=== PATIENT | female | born 1975 | race Caucasian/White ===

== ENCOUNTER 2016-08-20 10:34 | Inpatient (IN) | payer OTHER ==
[~2016-08-20] VITALS: Ht 162.6 cm; Wt 57.9 kg
[2016-08-20] MEDS ORDERED: IRON65TA PO (10:59)
[2016-08-20 11:47] LABS: BASO % 0.4 % (0.0-1.0); EOS # 0.2 K/mm3 (0.0-0.50); EOS % 2.4 % (0.0-3.0); LARGE UNSTAINED CELL # 0.1 K/mm3 (0.0-0.4); LARGE UNSTAINED CELL % 1.6 % (0.0-4.0); LYMPH # 1.4 K/mm3 (1.5-4.5); LYMPH % 20.1 % (24.0-44.0); MEAN CORPUSCULAR HEMOGLOBIN 32.2 pg (27.0-33.0); MEAN CORPUSCULAR HGB CONC 34.6 g/dl (32.0-36.5); MEAN CORPUSCULAR VOLUME 93.1 fl (80.0-96.0); MONO # 0.3 K/mm3 (0.0-0.8); MONO % 4.1 % (0.0-5.0); NEUTROPHILS # 4.8 K/mm3 (1.8-7.7); NEUTROPHILS % 71.4 % (36.0-66.0); PLATELET COUNT, AUTOMATED 180 k/mm3 (150-450); RED CELL DISTRIBUTION WIDTH 12.4 % (11.5-14.5); WHITE BLOOD COUNT 6.8 K/mm3 (4.0-10.0)
[2016-08-20 12:15] LABS: ALBUMIN 3.7 GM/DL (3.2-5.2); ALBUMIN/GLOBULIN RATIO 1.16 (1.00-1.93); ALKALINE PHOSPHATASE 37 U/L (45-117); ALT/SGPT 15 U/L (12-78); ANION GAP 7 MEQ/L (8-16); AST/SGOT 16 U/L (15-37); BILIRUBIN,DIRECT < 0.1 MG/DL (0.0-0.2); BILIRUBIN,TOTAL 0.4 MG/DL (0.2-1.0); BLOOD UREA NITROGEN 10 MG/DL (7-18); CALCIUM LEVEL 8.7 MG/DL (8.5-10.1); CARBON DIOXIDE LEVEL 25 MEQ/L (21-32); CHLORIDE LEVEL 106 MEQ/L (98-107); CREATININE FOR GFR 0.87 MG/DL (0.55-1.02); GLOMERULAR FILTRATION RATE > 60.0 (>58); GLUCOSE, FASTING 88 MG/DL (70-105); POTASSIUM SERUM 3.7 MEQ/L (3.5-5.1); SODIUM LEVEL 138 MEQ/L (136-145); TOTAL PROTEIN 6.9 GM/DL (6.4-8.2)
[2016-08-20 12:50] LABS: CONTROL LINE HCG INT CTR LINE PRESENT
--- NOTE | 2016-08-20 13:29 | REP ---
CHEST, TWO VIEWS: No comparison. There is no evidence of acute infiltrate. No pleural effusion is seen. The heart is normal in size. The mediastinal silhouette is unremarkable. The visualized osseous structures are intact. IMPRESSION: No acute pulmonary disease. Signed by Wilian Mcintosh MD 08/20/2016 05:43 P
--- NOTE | 2016-08-20 13:49 | REP ---
CT Head without contrast HISTORY: Headache COMPARISON: None There is no intraparenchymal hemorrhage, acute infarct, mass or midline shift. The ventricular system is normal in appearance. There is no extra cerebral collection. There is no fracture. The visualized sinuses are clear. IMPRESSION: There is no intracranial lesion. Signed by Rashel Cruz MD 08/20/2016 01:41 P
[2016-08-20] MEDS ORDERED: IBUP200T45 PO (14:09)
--- NOTE | 2016-08-20 16:22 | REP ---
MRI BRAIN WITHOUT CONTRAST: HISTORY: Left sided weakness. COMPARISON: CT 08/20/2016. A single punctate focus of increased signal intensity on T2-weighted images is present in the subcortical white matter of the right temporal lobe. There is no intraparenchymal hemorrhage, infarct, mass or midline shift. The ventricular system is normal in appearance. There is no extracerebral collection. The sinuses are clear. IMPRESSION: There is a single punctate focus of increased signal intensity in the subcortical white matter of the right temporal lobe. This is a nonspecific finding. Signed by Rashel Cruz MD 08/20/2016 04:23 P
--- NOTE | 2016-08-20 16:24 | REP ---
MRA BRAIN WITHOUT CONTRAST: HISTORY: Left-sided weakness. 3D [id number] MR angiography was performed at the level of the [place]. There is no aneurysm, arteriovenous malformation or atherosclerotic lesion. Major intracranial vessels are patent. The left vertebral artery is dominant. IMPRESSION: Normal MRA brain. Signed by Rashel Cruz MD 08/20/2016 04:27 P
[2016-08-20] MEDS ORDERED: ASPIRIN 81 MG CHEW TABLET PO ONE (16:45)
[2016-08-20] MEDS ORDERED: ACETAMINOPHEN 325 MG TAB PO PRN (20:00)
--- NOTE | 2016-08-20 22:21 | HPEPDOC ---
General Date of Admission August 20, 2016 at 19:06 Attending Physician: KASSI HNUT MD Chief Complaint The patient is a 41-year-old female admitted with a reason for visit of Complicated Migraine;Tia. Source: Patient, Family, RN notes reviewed, Old records Exam Limitations: Clinical conditions Timing/Duration: This morning History of Present Illness Ms. Moreno is a 41 year old female who presents with weakness and hallucinations. She is accompanied by her and a friend. They provide some of the history. Past medical history is significant for a history of migraine with aura, history of enteritis, and questionable iron deficiency. Patient reports that hallucinatory event occurred after her father presented a topic on the War of 1811. She states that she started visualizing soldiers from the War of 1811 and left as if she was in a dream-like state. She also experienced intermittent episodes of weakness in her left lower extremity. During evaluation she appears uncertain of certain events and appears somewhat confused while providing the history. She reports a history of migraine with aura which was exacerbated by oral contraception. She says that her OB recommended that she discontinue her oral contraception and take ibuprofen to combat her headaches during her menstrual cycles. She states that she takes ibuprofen just before the start of her menstrual cycle and does not experience her headaches anymore. Patient reports that she also notes an increase in her migraine headache in association with her menstrual cycle and drinking red wine. She admits to drinking red wine last evening, but is not currently on her menstrual cycle. hCG was negative. Toxicology screen is pending. Patient continues to have delayed motor response in left lower extremity. Patient admits to having a similar episode in 2016. Patient also reports an expanding circular rash on her right inner thigh and outer leg proximal to the lateral aspect of the tibia. She reports that the first rash appeared in April 2016 on her inner thigh. It started out circular and that she describes as "a burst blood vessel." She reports internet searching her symptom and empirically starting herself on iron. She reports that the circular rash then developed into a more "targetoid" lesion which she reports will sometimes have a "purpl- lo" discoloration in the center. Denies pruritus and bleeding. Reports a second circular rash on her right lower lateral leg proximal to the lateral tibia. It appear scaly without pruritus and the telangectasis-like area, approximately 2cm in diameter, is blanchable. Will initiate an auto-immune work -up along with a Lyme titer. Besides review of systems that are listed above, all others are reported as negative. Hospitalist service was consulted and patient was admitted for further medical management. Home Medications Scheduled (Iron) 325 Mg Tab, 325 MG PO DAILY, (Reported) Scheduled PRN Ibuprofen (Ibu-200) 200 Mg Tab, 200 MG PO Q6H PRN for PAIN, (Reported) Allergies Coded Allergies: Codeine (Verified Allergy, Intermediate, RASH, N/V, 07/25/12) Lobster (Verified Allergy, Intermediate, RASH, 09/03/08) Shellfish Allergy (Verified Allergy, Intermediate, RASH, 07/25/12) Past Medical History Medical History 1. History of migraine with aura 2. History of enteritis Surgical History 1. section 2. Tonsillectomy 3. Right leg fracture 4. 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 Admits to dogs, cats, and fish in the home Review of Symptoms Constitutional: Reports: Weakness (Left lower extremity), Denies: Chills, Fever, Night Sweats Eyes: Reports: Vision change (Visual hallucinations) ENT: Reports: Head Aches, Denies: Sinus Congestion, Post Nasal Drip, Sore Throat, Epistaxis Skin: Reports: Rash (Right lower extremity - inner thigh, outer leg), Denies: Jaundice Pulmonary: Denies: Dyspnea, Cough Cardiovascular: Denies: Chest Pain, Palpitations, Lt Headedness Gastrointestinal: Denies: Nausea, Vomiting, Abdominal Pain, Diarrhea, Constipation, Melena, Hematochezia Genitourinary: Denies: Dysuria, Frequency, Incontinence, Hematuria Hematologic: Denies: Bruising Musculoskeletal: Reports: Neck Pain Neurological: Reports: Weakness, Denies: Numbness, Change in speech Physical Examination General Exam: Positive: Alert, Cooperative Eye Exam: Positive: PERRLA, Conjunctiva & lids normal, EOMI, Negative: Ptosis ENT Exam: Positive: Atraumatic, Mucous membr. moist/pink, Pharynx Normal, Tongue Midline, Nares Patent Neck Exam: Positive: Supple, Negative: JVD, thyromegaly, Lymphadenopathy Chest Exam: Positive: Clear to auscultation, Normal air movement Heart Exam: Positive: Rate Normal, Regular Rhythm, Normal S1, Normal S2, Negative: Gallops, Murmurs, Rubs Abdomen Exam: Positive: Normal bowel sounds, Soft, Negative: Tenderness, Hepatospenomegaly Extremity Exam: Positive: Normal pulses, Negative: Clubbing, Cyanosis, Edema, Tenderness, Swelling Skin Exam: Positive: Nl turgor and temperature, Rash Neuro Exam: Positive: Normal Speech, Other (5/5 retained strength in upper extremities bilaterally; delayed motor response in lower extremities bilaterally , L > R) Psych Exam: Positive: Oriented x 3 Other physical findings Chest x-ray IMPRESSION: No acute pulmonary disease Head CT without contrast IMPRESSION: There is no intracranial lesion MRA brain without contrast IMPRESSION: Normal MRA brain MRI brain without contrast IMPRESSION: There is a single punctate focus of increased signal intensity in the subcortical white matter of the right temporal lobe. This is a nonspecific finding. Vital Signs Vital Signs Date Time Temp Pulse Resp B/P (MAP) Pulse Ox O2 Delivery O2 Flow Rate FiO2 08/20/16 17:27 18 110/66 (81) 08/20/16 13:53 74 97 08/20/16 10:35 98.7 Room Air Height (in): 64 Weight (kg): 58.967 BMI (kg): 22.3 Laboratory Data Labs 24H Laboratory Tests 2 08/20/16 11:16: White Blood Count 6.8, Red Blood Count 3.96L, Hemoglobin 12.8, Hematocrit 36.8, Mean Corpuscular Volume 93.1, Mean Corpuscular Hemoglobin 32.2, Mean Corpuscular Hemoglobin Concent 34.6, Red Cell Distribution Width 12.4, Platelet Count 180, Neutrophils (%) (Auto) 71.4H, Lymphocytes (%) (Auto) 20.1L, Monocytes (%) (Auto) 4.1, Eosinophils (%) (Auto) 2.4, Basophils (%) (Auto) 0.4, Neutrophils # (Auto) 4.8, Lymphocytes # (Auto) 1.4L, Monocytes # (Auto) 0.3, Eosinophils # (Auto) 0.2, Basophils # (Auto) 0.0, Large Unclassified Cells % 1.6 , Large Unclassified Cells # 0.1, D-Dimer, Quantitative < 270.0, Anion Gap 7L, Glomerular Filtration Rate > 60.0, Calcium Level 8.7, Aspartate Amino Transf ( AST/SGOT) 16, Alanine Aminotransferase (ALT/SGPT) 15, Alkaline Phosphatase 37L, Total Bilirubin 0.4, Direct Bilirubin < 0.1, Total Creatine Kinase 72, Creatine Kinase MB 1.0, Creatine Kinase MB Relative Index 1.38, Troponin I < 0.02, B- Type Natriuretic Peptide 23.3, Total Protein 6.9, Albumin 3.7, Albumin/Globulin Ratio 1.16, Lipase 127, Thyroid Stimulating Hormone (TSH) 3.690, Free Thyroxine 1.00, Human Chorionic Gonadotropin, Qual NEGATIVE 08/20/16 19:57: Erythrocyte Sedimentation Rate 8, C-Reactive Protein, Quantitative < 0.30, Rheumatoid Factor < 10.0 CBC/BMP Laboratory Tests 08/20/16 11:16 Red Blood Count 3.96 L, Mean Corpuscular Volume 93.1, Mean Corpuscular Hemoglobin 32.2, Mean Corpuscular Hemoglobin Concent 34.6, Red Cell Distribution Width 12.4, Neutrophils (%) (Auto) 71.4 H, Lymphocytes (%) (Auto) 20.1 L, Monocytes (%) (Auto) 4.1, Eosinophils (%) (Auto) 2.4, Basophils (%) ( Auto) 0.4, Neutrophils # (Auto) 4.8, Lymphocytes # (Auto) 1.4 L, Monocytes # ( Auto) 0.3, Eosinophils # (Auto) 0.2, Basophils # (Auto) 0.0 RAD Interpretation STUDY: CXR (No acute cardiopulmonary disease) Rad Actions: Report Reviewed RAD Interpretation: Normal Assessment/Plan Ms. Moreno is a 41 year old female who presents with the likely diagnosis of transient global amnesia. Problems (1) Complicated migraine Status: Acute Problem Text: Consult: neurology EEG PT, OT Outpatient follow-up with neurology in 2 weeks (2) Rash Status: Acute Problem Text: APOORVA titer and pattern Rheumatoid factor CRP ESR Lyme titer Plan / VTE VTE Prophylaxis Ordered?: Yes (Lovenox 40mg SC daily) Plan Plan Complicated migraine Neurology has been consulted and evaluated patient. Their recommendations include obtaining an EEG and having PT and OT evaluate patient. They further recommend that psychiatry does not need to consulted as this clinical scenario is more likely secondary to a complicated migraine. Further recommendations are that ASA does not need to continued as this is less likely the result of an undelrying stroke. They further advised that triptans not be used for acute management as this can exacerbate patient's acute clinical picture. Neurology would like patient to follow-up in 2 weeks as an outpatient. Toxicology is also being obtained. EEG has also been ordered. Based on results of EEG will determine future management. Neurology did discuss management with magnesium which patient responded that "she would think about it." Imaging thus far has been negative. Rash Patient reports cutaneous rashes noted on her right lower extremity with the most persistent one being present since April 2016. The most recent one has been present for approximately 3 weeks. They are non-pruritic. Patient describes them as "burst blood vessels." Patient self-diagnosed and has been treating with iron. She reports subjective improvement. Will obtain an auto- immune panel, including APOORVA titer and pattern, rheumatoid factor, CRP, and ESR. DVT prophylaxis: Lovenox 40mg SC daily Diet: Regular Disposition Admit: Progressive care unit Anticipated hospitalization: 2 nights Attending: Dr. Woo Diet: Continue Current Activity: Continue Current Therapy: PT, OT Diagnostics: Check Labs, Repeat Labs in AM, Other Diagnostics (EEG) Anticipated Discharge: Home JYOTI PAUL August 20, 2016 22:20
--- NOTE | 2016-08-20 23:23 | CR ---
DATE OF CONSULTATION: 08/20/2016 NEUROLOGY CONSULTATION: REFERRING PROVIDER: Dr. Amy Solorzano REASON FOR CONSULTATION: Confusion and left-sided leg weakness. The patient is a 41-year-old female with a past medical history significant for migraine headaches with aura, presenting with a chief complaint of waking up today and noticing that she had difficulty with memory. 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 The patient also was having vivid dreams within her mind, she stated. She did not have formed actual visual or auditory hallucinations. She was seeing soldiers fighting in a war related to a story her father had recently told her earlier in the morning while she was at work, regarding the War of 1811. She was brought in by a friend around 9:30 a.m. and had significant confusion to least 11:00 a.m. Since then, her confusion has improved, though she is not returned back to baseline state. Her friend does state that she was repeating herself quite a lot and could not recall why she was even in the emergency room (ER) for quite some time. The patient was displaying symptoms suggestive of transient global amnesia. She was experiencing left lower extremity weakness, which was still present intermittently during examination. MRI, MR angiogram of the head were completed, which were negative for any acute stroke. The patient usually has one headache every other week and mostly related to her menstrual cycles. The headaches are located at the top of head, described as pulsation or throbbing. The patient does have significant light sensitivity, sound sensitivity, nausea. She does experience some numbness in the top of her head but denies any weakness other than today. She does not have any change in speech with her headaches. She is experiencing difficulty with her speech today, however. The patient does see visual auras of stars a few minutes before her headache. For the last month, the patient was complaining of significant lightheadedness, dizziness and fatigue. She does feel lightheaded when she stands up too quickly. She feels that she is overly medicated at times. She does have a family history of migraines in her sister and in her mother. The patient denies the use of any illicit drugs but does drink alcohol two to three times a week. When she drinks red wine, this can sometimes trigger a migraine, most of the time during her menstrual cycles. She did incidentally drink red wine last night. She quit tobacco approximately 4 years ago. Her migraines build up over time, are worse with activity, better in a quiet dark room and worsened with menstrual cycles. Two weeks ago, the patient experienced left arm paresthesias. These symptoms are provoked 2 weeks ago and including today chest pain and shortness of breath. The patient had a unremarkable EKG, negative troponins. A complete blood count (CBC), comprehensive metabolic panel (CMP), troponin, thyroid-stimulating hormone (TSH), human chorionic gonadotropin (hCG) were all negative. The patient has a Lyme test pending. She complains of a ring-like rash around her medial thigh and lateral leg on the right side, ongoing for the last several months since April. This does not appear to be a bullseye rash and clearly has not resolved. She is awaiting to discuss this with a primary care provider. She not start any new medications recently. REVIEW OF SYSTEMS: 14-point review of systems obtained and is negative except as per HPI. The patient's is present at bedside who also feels the patient is not quite at her baseline state. If it is usual, she is very sharp and usually does not have any difficulty with her memory. She has never had an psychotic features or any prior history of hallucinations or abnormal thoughts. FAMILY HISTORY: Mother and sister with migraine headaches. PAST SURGICAL HISTORY: None. PAST MEDICAL HISTORY: Migraine headaches with aura. History of anemia, iron-deficiency. HOME MEDICATIONS: - iron supplementation ALLERGIES: CODEINE, LOBSTER, SHELLFISH. PHYSICAL EXAMINATION: Blood pressure 113/71, pulse rate 74, respiratory rate is 18, 97% oxygenation on room air, 98.7 degrees Fahrenheit. NEUROLOGIC EXAMINATION: The patient is alert, oriented to person, place, and time. Speech language, repetition are intact. Pupils are 3 mm, round, reactive to light. Extraocular movements are intact in all directions without nystagmus. Sensation V1, V2, V3 was intact to light touch. No facial asymmetry to activation. Palate elevates symmetrically. Tongue is midline. No weakness of sternocleidomastoids bilaterally. Motor examination normal [id number], [id number], without any ataxia or dysmetria. Strength is 5/5 including bilateral deltoids, biceps, triceps, handgrip. Iliopsoas is intermittently weak at the left lower extremity. The patient at times has difficulty initiating activation of the left lower extremity. She becomes quite tearful when noticing that she cannot activate her left lower extremity. At times, she demonstrates 5/5 strength, particularly at the quadriceps and tibialis anterior as well as the hamstring. Sensation is intact to light touch in all four extremities. Coordination: Normal [id number] without any signs of gross ataxia or dysmetria. Gait deferred due to intermittent left lower extremity weakness. ASSESSMENT: 1. Suspect transient global amnesia related to migraine headaches. No evidence of stroke on MRI of the brain. 2. Rule out seizure, though less likely. PLAN: Obtain an EEG, rule out cortical dysfunction, seizure. Magnesium oxide and riboflavin 400 mg each suggested to the patient to consider for treatment of migraine headache with aura. The patient will be admitted for observation. She can followup in the [facility] as an outpatient. With MRI findings negative despite having persistent symptoms, this is less likely a stroke. At this point in time, do not recommend starting aspirin. I recommend to avoid the use of red wine, which likely triggered the patient's symptoms today. Followup Lyme studies. The patient should followup with primary care provider regarding abnormal rash of right lower extremity.
[2016-08-21 00:32] VITALS: BP 101/59
[2016-08-21 04:00] VITALS: BP 95/56
[2016-08-21] MEDS: ENOXAPARIN 40 MG/0.4 ML SYRINGE (J1650) SC SCH ×2 (07:59→08:01)
[2016-08-21 08:00] VITALS: BP 111/60
[2016-08-21 08:07] LABS: MEAN CORPUSCULAR HEMOGLOBIN 32.3 pg (27.0-33.0); MEAN CORPUSCULAR HGB CONC 34.4 g/dl (32.0-36.5); MEAN CORPUSCULAR VOLUME 93.9 fl (80.0-96.0); RED CELL DISTRIBUTION WIDTH 12.5 % (11.5-14.5); WHITE BLOOD COUNT 5.5 K/mm3 (4.0-10.0)
[2016-08-21 08:14] LABS: ANION GAP 6 MEQ/L (8-16); BLOOD UREA NITROGEN 11 MG/DL (7-18); CALCIUM LEVEL 8.5 MG/DL (8.5-10.1); CARBON DIOXIDE LEVEL 27 MEQ/L (21-32); CHLORIDE LEVEL 107 MEQ/L (98-107); CREATININE FOR GFR 0.93 MG/DL (0.55-1.02); GLOMERULAR FILTRATION RATE > 60.0 (>58); GLUCOSE, FASTING 88 MG/DL (70-105); SODIUM LEVEL 140 MEQ/L (136-145)
--- NOTE | 2016-08-21 08:21 | ECGEPIP ---
Stationary ECG Study [facility] - ED Test Date: 2016-08-20 Pat Name: CHELSY SHEIKH Department: Room: - Gender: F Operations Intelligence: kalli : [id number] Requested By: Pina Foster Order Number: [id number] Reading MD: Pina Foster Measurements Intervals [place] Rate: 71 P: 68 DE: 142 QRS: 39 QRSD: 102 T: 25 QT: 412 QTc: 449 Interpretive Statements SINUS RHYTHM INCOMPLETE RIGHT BUNDLE BRANCH BLOCK LOW VOLTAGE LIMB NO PRIOR FOR COMPARISON Electronically Signed On 08-21-2016 8:21:24 EDT by Pina Foster
[2016-08-21] MEDS ORDERED: RIBO400T PO (08:58)
[2016-08-21] MEDS ORDERED: MAGN400T5 PO (08:58)
[2016-08-21] MEDS ORDERED: MAGNESIUM OXIDE 400 MG TAB (MAG-OX) PO ONE (09:00)
--- NOTE | 2016-08-21 10:01 | DSES ---
DATE OF ADMISSION: 08/20/2016 DATE OF DISCHARGE: 08/21/2016 CONSULTANTS: Dr. Ross. PRIMARY CARE PHYSICIAN: Shell Stern. PRIMARY DISCHARGE DIAGNOSIS: 1. Transient global amnesia related to migraine headaches. No evidence of stroke on MRI of the brain. 2. Rule out seizure disorder with EEG with report pending. 3. Left lower extremity weakness most likely secondary to complicated migraine with ora. 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 Patient was brought in to the emergency room, was found to have left lower extremity weakness. MRI/MRA of the head were completed which were negative for acute cerebrovascular accident (CVA). Patient states that she has a headache every other week related to her menstrual cycles though patient did have visual ora that starts a few minutes before her headache previously. For the last month, she complained of some lightheadedness, dizziness and fatigue. EKG, troponin, CBC, CMP, troponin, TSH, hCG were all negative. She had a ring like rash around the medial thigh on the lateral leg on the right side for the past several months since April, does not appear to be bullseye rash which has not resolved. Patient was given magnesium oxide and riboflavin. EG performed with no results to rule out cortical dysfunction or seizure activity. She was seen by Dr. Ross, recommended outpatient followup. Her left lower extremity weakness resolved. FOLLOWUP ISSUES: 1. Leg rash. Followup with primary care physician to check for resolution. Check shoshone-bannock titers if needed but no bullseye rash and has not resolved on discharge. LABS ON DISCHARGE: White count 5.5, hemoglobin 13, hematocrit 38, platelet count 181. Sodium 140, potassium 4, chloride 107, bicarbonate 27, BUN 11, creatinine 0.93, glucose of 88, CRP less than 0.3, TSH 3.6. hCG negative. MRA of the brain is normal. MRI of the brain: Single punctate focus increased intensity and subcortical white matter of the right temporal lobe. Chest x-ray: No active disease. Time spent on discharge: 30 minutes. MTDD
[2016-08-21 13:20] VITALS: BP 120/60
[2016-08-22 00:07] LABS: Lyme Disease IgG/IgM Antibodie <0.91 ISR (0.00-0.90); Lyme Disease IgM Ab Quantitati <0.80 index (0.00-0.79)
[2016-08-22] MEDS ORDERED: MAGNESIUM OXIDE 400 MG TAB (MAG-OX) PO SCH (09:00)
--- NOTE | 2016-08-23 06:37 | EEG ---
DATE OF PROCEDURE: 08/21/2016 REFERRING PHYSICIAN: James Woo DO DIAGNOSIS: Complex migraine, rule out seizure. EEG NUMBER: [id number]. HISTORY: Patient is a 41-year-old woman who was admitted at [facility] with difficulty with memory. She has history of migraines with aura. This EEG was done to rule out epileptic potential. She is currently taking aspirin, magnesium. TECHNICAL DESCRIPTION: This digital EEG was recorded by 21 scalp, ear and two EKG electrodes and was reviewed in bipolar and referential montages following reformatting in 10-20 international electrode placement system. INTERPRETATION: Patient was noted to be in awake and drowsy states during this EEG. Resting awake background rhythm consisted of well-formed posterior dominant rhythm with anterior/posterior gradient comprising of 10 Hz alpha activity measuring 15-40 microvolts in amplitude, which was symmetric and reactive to eye opening. Attenuation of posterior dominant rhythm was seen during transition into drowsiness. Stage I and II sleep were reviewed and were symmetric bilaterally. Hyperventilation elicited mild theta slowing of background rhythm. Photic stimulation remained unremarkable. EKG revealed normal sinus rhythm. No focal, lateralizing or epileptiform abnormalities were seen. No clinical or electrographic seizures were recorded. CONCLUSION: This EEG in awake, drowsy states, stage I and II sleep is within normal limits.
== END 2016-08-21 14:50 | disposition home or self-care (01) | DRG 103 ==
LOC: M ED 12:38 → M ED INP 19:06
PROVIDERS: ADMIT Internal Medicine; ATTEND General Practice
DX: G43.109 Migraine with aura, not intractable, without status migrainosus (principal); G45.4 Transient global amnesia; Z79.899 Other long term (current) drug therapy; Z88.5 Allergy status to narcotic agent; Z91.013 Allergy to seafood; Z87.891 Personal history of nicotine dependence; R21 Rash and other nonspecific skin eruption

== ENCOUNTER → 2016-10-12 | Outpatient (REF) | payer OTHER ==
[~2016-10-12] MED LIST: IBUP200T45 PO; IRON65TA PO; MAGN400T5 PO; RIBO400T PO
== END ==
LOC: M LABDRAW1 11:56
PROVIDERS: ATTEND Internal Medicine Cardiovascular Disease
DX: Z82.49 Family history of ischemic heart disease and other diseases of the circulatory system (principal)

== ENCOUNTER → 2017-03-07 | Outpatient (REF) | payer OTHER | LOC: M LAB REF 17:44 | PROVIDERS: ATTEND Nurse Practitioner Women's Health | DX: O92.6 Galactorrhea (principal) ==

== ENCOUNTER → 2017-03-07 | Outpatient (CLI) | payer OTHER | LOC: M WUC 10:54 | PROVIDERS: ATTEND Nurse Practitioner Women's Health | DX: O92.6 Galactorrhea (principal) ==

== ENCOUNTER → 2019-04-23 | Outpatient (CLI) | payer OTHER ==
[2019-04-23 12:38] LABS: ALBUMIN 3.6 GM/DL (3.2-5.2); ALT/SGPT 15 U/L (12-78); BILIRUBIN,TOTAL 0.4 MG/DL (0.2-1.0); BLOOD UREA NITROGEN 12 MG/DL (7-18); CARBON DIOXIDE LEVEL 28 MEQ/L (21-32); CHLORIDE LEVEL 106 MEQ/L (98-107); CHOLESTEROL LEVEL 237 MG/DL (<200); CHOLESTEROL RISK RATIO 2.494 (<5); CREATININE FOR GFR 0.94 MG/DL (0.55-1.30); GLOMERULAR FILTRATION RATE > 60.0 (>58); GLUCOSE, FASTING 83 MG/DL (70-100); HDL CHOLESTEROL 95 MG/DL (>40); LDL CHOLESTEROL 125 MG/DL (<100); NON-HDL-C 142 MG/DL; POTASSIUM SERUM 4.2 MEQ/L (3.5-5.1); SODIUM LEVEL 140 MEQ/L (136-145); TOTAL PROTEIN 6.9 GM/DL (6.4-8.2); TRIGLYCERIDES LEVEL 87 MG/DL (<150)
== END ==
LOC: M WUC 09:28
PROVIDERS: ATTEND Physician Assistant
DX: Z00.00 Encounter for general adult medical examination without abnormal findings (principal); B35.1 Tinea unguium

== ENCOUNTER → 2020-02-10 | Outpatient (CLI) | payer OTHER ==
[2020-02-10 18:27] LABS: BASO % 0.6 % (0.0-1.0); EOS # 0.2 10^3/uL (0.0-0.5); EOS % 3.5 % (0.0-3.0); HEMATOCRIT 39.3 % (36.0-47.0); HEMOGLOBIN 12.8 g/dl (12.0-15.5); LYMPH # 2.3 10^3/uL (1.5-5.0); LYMPH % 33.1 % (24.0-44.0); MEAN CORPUSCULAR HEMOGLOBIN 30.5 pg (27.0-33.0); MEAN CORPUSCULAR HGB CONC 32.6 g/dl (32.0-36.5); MEAN CORPUSCULAR VOLUME 93.6 fl (80.0-96.0); MONO # 0.6 10^3/uL (0.0-0.8); MONO % 9.4 % (0.0-5.0); NEUTROPHILS # 3.6 10^3/uL (1.5-8.5); NEUTROPHILS % 52.7 % (36.0-66.0); PLATELET COUNT, AUTOMATED 197 10^3/uL (150-450); WHITE BLOOD COUNT 6.8 10^3/uL (4.0-10.0)
[2020-02-10 18:41] LABS: BLOOD UREA NITROGEN 11 MG/DL (7-18); CREATININE FOR GFR 0.93 MG/DL (0.55-1.30); GLUCOSE, FASTING 87 MG/DL (70-100)
[2020-02-10 18:42] LABS: CALCIUM LEVEL 8.9 MG/DL (8.5-10.1); CARBON DIOXIDE LEVEL 27 MEQ/L (21-32); CHLORIDE LEVEL 106 MEQ/L (98-107); GLOMERULAR FILTRATION RATE > 60.0 (>58); POTASSIUM SERUM 4.3 MEQ/L (3.5-5.1); SODIUM LEVEL 139 MEQ/L (136-145)
== END ==
LOC: M WUC 15:12
PROVIDERS: ATTEND Physician Assistant Medical
DX: R94.31 Abnormal electrocardiogram [ECG] [EKG] (principal)

== ENCOUNTER → 2020-09-09 | Outpatient (CLI) | payer OTHER ==
--- NOTE | 2020-09-09 16:34 | REP ---
INDICATION: PELVIC PAIN BLOATING. COMPARISON: 02/15/2014 the latest prior TECHNIQUE: Transvesical and transvaginal imaging FINDINGS: The uterus measures 13.6 x 4 x 7 cm. The parenchymal echo pattern is essentially unchanged from the prior exam. There are no masses. The endometrial echo complex measures 1.2 cm in thickness and is within normal limits. The right ovary was not seen transvaginally or transvesically. Left ovary measures 4.8 x 4.6 x 4.2 cm. Within the left ovary there is a 3.8 x 3.6 x 4 cm sized mixed echo structure with possibly an early papillary projection. The left ovarian RI is 0.58 IMPRESSION: 1. Left ovarian cystic mass as described above. Exact etiology uncertain. Differential diagnosis includes hemorrhagic ovarian cyst or possibly neoplastic change. Follow-up is warranted. Consider pre and post gadolinium enhanced pelvic MRI if clinically relevant. 2. Slightly enlarged with otherwise unremarkable appearing uterus. 3. Nonvisualization of the right ovary. <Electronically signed by Saad Dudley > 09/09/20 [id number]
== END ==
LOC: M RAD 15:45
PROVIDERS: ATTEND Obstetrics & Gynecology
DX: N92.1 Excessive and frequent menstruation with irregular cycle (principal); N83.8 Other noninflammatory disorders of ovary, fallopian tube and broad ligament; N85.2 Hypertrophy of uterus

== ENCOUNTER → 2020-09-13 | Outpatient (CLI) | payer OTHER ==
[2020-09-13 20:52] LABS: CA 125 19.9 U/ML (<30.2); CA19-9 TUMOR MARKER,CARBOHYDRA 9.6 U/ML (<35.0)
== END ==
LOC: M WUC 15:27
PROVIDERS: ATTEND Obstetrics & Gynecology
DX: Z79.899 Other long term (current) drug therapy (principal)

== ENCOUNTER → 2020-10-15 | Outpatient (CLI) | payer OTHER ==
[~2020-10-15] MED LIST changes: +VITA100T39 PO
== END ==
LOC: M LABSMTC 10:38
PROVIDERS: ATTEND Anesthesiology
DX: Z01.812 Encounter for preprocedural laboratory examination (principal); Z20.822 Contact with and (suspected) exposure to COVID-19

== ENCOUNTER 2020-10-20 06:17 | Day surgery (SDC) | payer OTHER ==
[~2020-10-20] VITALS: Ht 162.6 cm; Wt 58.0 kg
[2020-10-20] VITALS (9 sets, daily range): BP systolic 102–113; BP diastolic 56–63
[~2020-10-20 06:17] MED LIST changes: +LR 1,000 ML IV ONE; +ceFAZolin SOD 2 GM in IV 1 EA IV ONE
[2020-10-20 06:54] LABS: HEMATOCRIT 38.8 % (36.0-47.0); HEMOGLOBIN 12.9 g/dl (12.0-15.5); MEAN CORPUSCULAR HEMOGLOBIN 30.8 pg (27.0-33.0); MEAN CORPUSCULAR HGB CONC 33.2 g/dl (32.0-36.5); MEAN CORPUSCULAR VOLUME 92.6 fl (80.0-96.0); PLATELET COUNT, AUTOMATED 212 10^3/uL (150-450); RED BLOOD COUNT 4.19 10^6/uL (4.00-5.40); WHITE BLOOD COUNT 7.2 10^3/uL (4.0-10.0)
[2020-10-20] MEDS ORDERED: fentaNYL 100 MCG/2 ML INJECTION (J3010) As Ordered ONE ×3 (06:55→10:40)
[2020-10-20] MEDS ORDERED: MIDAZOLAM INJ 2MG/2ML VIAL (J2250 PER 1MG) As Ordered ONE (06:55)
[2020-10-20] MEDS ORDERED: SUGAMMADEX SODIUM 500 MG/5 ML VIAL (BRIDION) As Ordered ONE (06:56)
[2020-10-20] MEDS ORDERED: ROCURONIUM BROMIDE 50 MG/5 ML VIAL As Ordered ONE (06:56)
[2020-10-20] MEDS ORDERED: PHENYLephrine 500MCG 5ML (100MCG/ML) SYRINGE As Ordered ONE (06:56)
[2020-10-20] MEDS ORDERED: ACETAMINOPHEN 1000MG 100ML IV BTL (OFIRMEV) (J0131 PER 10MG) As Ordered ONE (06:56)
[2020-10-20] MEDS ORDERED: propofoL 200 MG/20 ML VIAL As Ordered ONE ×2 (06:56→08:50)
[2020-10-20] MEDS ORDERED: ePHEDrine SULFATE 25 MG/5 ML(5MG/ML) SYRINGE As Ordered ONE (06:56)
[2020-10-20] MEDS ORDERED: dexameTHASONE 4 MG/ML 1ML VIAL (J1100 PER 1MG) As Ordered ONE ×2 (06:56→09:21)
[2020-10-20] MEDS ORDERED: LIDOCAINE 2% 100MG/5ML SDV (FOR ANES.) As Ordered ONE (06:56)
[2020-10-20] MEDS ORDERED: ONDANSETRON 4MG/2ML VIAL As Ordered ONE ×2 (06:56→10:37)
[2020-10-20 07:26] LABS: HCG, SERUM QUALITATIVE NEGATIVE (NEGATIVE)
[2020-10-20] MEDS ORDERED: KETOROLAC 60MG 2ML VIAL As Ordered ONE (09:22)
[2020-10-20] MEDS ORDERED: MORPHINE 1MG/ML IN 0.9% NACL 100ML IV BAG As Ordered ONE (10:26)
[2020-10-20] MEDS: fentaNYL 100 MCG/2 ML INJECTION (J3010) IV PRN ×2 (10:45→10:50)
[2020-10-20] MEDS ORDERED: LR 1,000 ML IV SCH (10:55)
[2020-10-20] MEDS ORDERED: ONDANSETRON 4MG/2ML VIAL IV PRN (10:55)
[2020-10-20] MEDS ORDERED: oxyCODONE 5MG TAB PO PRN (10:55)
[2020-10-20] MEDS ORDERED: NALBUPHINE HCL 10 MG/ML AMP (J2300) IV PRN (11:00)
[2020-10-20] MEDS ORDERED: diphenhydrAMINE 50MG/ML VIAL (J1200) IV PRN (11:00)
[2020-10-20] MEDS ORDERED: NALOXONE INJ 0.4MG/1ML VIAL (J2310 PER 1MG) IV PRN (11:00)
[2020-10-20] MEDS ORDERED: MORPHINE 1MG/ML IN 0.9% NACL 100ML IV BAG IV PRN (11:00)
[2020-10-20] MEDS ORDERED: EPIDURAL/PCA KEYS XX PRN (11:00)
[2020-10-20] MEDS ORDERED: NS 1,000 ML IV SCH (11:00)
[2020-10-20] MEDS: LR 1,000 ML IV SCH ×2 (11:00→19:31)
--- NOTE | 2020-10-20 14:03 | RO ---
OPERATIVE NOTE DATE OF OPERATION: 10/20/2020 PREOPERATIVE DIAGNOSIS/INDICATION FOR SURGERY: Pain and bleeding. POSTOPERATIVE DIAGNOSIS: Pain and bleeding. PROCEDURE: LAVH, BSO. SURGEON: Val Fortune MD CONSULTING INTERN: DALILA Tracey ANESTHESIA: General endotracheal anesthesia. BRIEF DESCRIPTION OF PROCEDURE AND FINDINGS: Pinky was brought to the operating room where sufficient general endotracheal anesthesia was induced and she was prepped, draped and positioned in the usual sterile fashion with the uterine manipulator placed and a Sandhu with the ability to back fill placed. Attention was then turned to the abdomen. A transverse semilunar incision was made below the umbilicus. Sharp and blunt dissection was continued through the subcutaneous tissue to the level of the rectus fascia just transversely incised, secured with 0 Vicryl sutures in the peritoneum, entered under direct visualization. The Debora cannula was then placed and secured in place with the 0 Vicryl retention sutures. CO2 insufflation was then begun. After adequate CO2 insufflation, the peritoneal cavity was visualized. There were normal shiny peritoneal surfaces throughout with no excrescences, ascites or exudate. There were some minor benign appearing cysts on the right ovary and a small paratubal cyst no significant appearing lesions and pictures of the pelvis and the abdomen were taken. We then used the operative port in the laparoscope to place a #45 Enseal and using the uterine manipulator, isolated the infundibulopelvic ligaments first on the left, then the right and carefully cauterized and transected the infundibulopelvic ligament and the mesentery to the tube and ovary, working our way towards the round ligament, again started on the left and then worked on the right. We dissected down through the rounds bilaterally. She had a slightly widened fundus consistent with her history of uterine septum but not a true didelphys or bicornuate but just a little bit wider than average. Her cervix was also just slightly wider than it was tall but again, no significant anomalies were noted. The ureters were readily identified. We were able to stay away from the ureters and bowel as we worked and after she had freed the tissues from above, we then went ahead and proceeded to the work from below. Working vaginally with the uterine manipulator removed and single-tooth tenacula on the cervix, a circumferential incision was made around the base of the cervix and the cardinal ligaments were isolated, clamped, transected and ligated using the Quick clamps and 0 Vicryl which was used throughout this portion of the case. We then clamped, transected and ligated the uterosacrals which were held for later reattachment to the cuff and of course, we had entered the peritoneum posteriorly. Then we carefully continued the dissection anteriorly and with the peritoneum entered anteriorly and posteriorly and the bladder out of the way and the bowel out of the way, we carefully worked along the lateral aspect of the uterus. The patient's vagina was a little narrow for her wide uterus so as we got towards the fundus, we some difficulty with space, gaining access and so we went ahead and bisected the cervix so that we could replace the left side and work on the right side and get easier access to the fundus and have control of those pedicles. Then after we freed the right side of the uterus, we were able to deliver the fundus and then have much easier access to the pedicle on the patient's left side. We did go ahead and separate the tubes and ovaries from the fundus again so that we could get the uterus out of the way and with the uterus delivered, we were readily able to bring down those pedicles and complete that dissection and so uterus, ovaries and tubes all removed of course inclusive of cervix. We then carefully evaluated the pedicles and pedicles showed good hemostasis but the cuff itself at the angles had a little oozing so we oversewed those angles with modified Dumont stitches bilaterally and then secured the uterosacrals and then with good hemostasis secured, we went ahead and closed the cuff with a running locked stitch of 0 Vicryl with good approximation and hemostasis achieved. We then also removed the Debora from the umbilicus because of course the instruments were already out and closed that umbilical wound as well using the 0 Vicryl retention sutures for the fascial closure and then closing the skin with 3-0 Vicryl in a subcuticular stitch. ESTIMATED BLOOD LOSS FOR THE PROCEDURE: About 100 mL. FLUID REPLACEMENT: Crystalloid. COMPLICATIONS: None. CONDITION AND DISPOSITION: Pinky tolerated the procedure well and was recovered in the recovery room in good condition.
[2020-10-20] MEDS: IBUPROFEN 600MG TAB PO PRN (16:11)
[2020-10-20] MEDS: NORCO, ANEXSIA 5/325MG TABLET (HYDROcodone/ACETAMINOPHEN) PO PRN (19:12)
--- NOTE | 2020-10-20 23:17 | ECGEPIP ---
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 Nonspecific ST/T wave abnormalities Slower rate with QT prolongation from study 08/20/16 Clinical correlation advised Consider electrolyte disturbance versus acute i ischemia Electronically Signed on 10-20-2020 23:17:08 EDT by Amilcar Langston
[2020-10-21] MEDS: NORCO, ANEXSIA 5/325MG TABLET (HYDROcodone/ACETAMINOPHEN) PO PRN ×2 (01:19→10:53)
[2020-10-21 02:00] VITALS: BP 97/52
[2020-10-21 02:15] VITALS: BP 104/50
[2020-10-21] MEDS: LR 1,000 ML IV SCH ×2 (02:57→11:03)
[2020-10-21 06:00] VITALS: BP 86/50
[2020-10-21 06:18] LABS: MEAN CORPUSCULAR HGB CONC 32.7 g/dl (32.0-36.5); MEAN CORPUSCULAR VOLUME 94.9 fl (80.0-96.0); PLATELET COUNT, AUTOMATED 143 10^3/uL (150-450); RED BLOOD COUNT 3.16 10^6/uL (4.00-5.40); WHITE BLOOD COUNT 7.8 10^3/uL (4.0-10.0)
[2020-10-21 06:19] LABS: HEMOGLOBIN 9.8 g/dl (12.0-15.5)
[2020-10-21] MEDS: IBUPROFEN 600MG TAB PO PRN (06:47)
[2020-10-21] MEDS ORDERED: LR 250 ML IV ONE (06:55)
[2020-10-21 08:01] VITALS: BP 100/62
[2020-10-21 08:17] VITALS: BP 118/48
[2020-10-21 10:00] VITALS: BP 106/58
[2020-10-21 10:30] LABS: HEMATOCRIT 29.4 % (36.0-47.0); HEMOGLOBIN 9.4 g/dl (12.0-15.5)
== END 2020-10-21 14:12 | disposition home or self-care (01) ==
LOC: M SDC 06:17 → M MSPAV 13:05 → M SDC 10-21 14:12
PROVIDERS: ATTEND Obstetrics & Gynecology
DX: N93.9 Abnormal uterine and vaginal bleeding, unspecified (principal); R10.2 Pelvic and perineal pain; N80.0 Endometriosis of uterus; Z88.5 Allergy status to narcotic agent; Z91.013 Allergy to seafood; G43.909 Migraine, unspecified, not intractable, without status migrainosus; J45.909 Unspecified asthma, uncomplicated
CPT/HCPCS: 36415; 58571; 84703; 85014; 85018; 85027; 86850; 86900; 86901; 88307; 93005; J0131; J0690; J1100; J1885; J2250; J2370; J2405; J3010

== ENCOUNTER → 2021-06-13 | Outpatient (CLI) | payer OTHER ==
[~2021-06-13] MED LIST changes: -IBUP200T45 PO; +IBUP200T46 PO; -LR 1,000 ML IV ONE; -ceFAZolin SOD 2 GM in IV 1 EA IV ONE
== END ==
LOC: M WHC 08:19
PROVIDERS: ATTEND Nurse Practitioner Family
DX: Z12.31 Encounter for screening mammogram for malignant neoplasm of breast (principal); Z80.42 Family history of malignant neoplasm of prostate; Z80.3 Family history of malignant neoplasm of breast

== ENCOUNTER → 2022-03-02 | Outpatient (CLI) | payer OTHER ==
[2022-03-02 10:42] LABS: ALBUMIN 4.2 GM/DL (3.2-5.2); ALT/SGPT 28 U/L (12-78); BILIRUBIN,TOTAL 0.5 MG/DL (0.2-1.0); BLOOD UREA NITROGEN 11 MG/DL (7-18); CALCIUM LEVEL 9.9 MG/DL (8.5-10.1); CARBON DIOXIDE LEVEL 29 MEQ/L (21-32); CHLORIDE LEVEL 104 MEQ/L (98-107); CHOLESTEROL LEVEL 227 MG/DL (<200); CHOLESTEROL RISK RATIO 2.609 (<5); CREATININE FOR GFR 0.99 MG/DL (0.55-1.30); GLOMERULAR FILTRATION RATE > 60.0 (>58); GLUCOSE, FASTING 86 MG/DL (70-100); HDL CHOLESTEROL 87 MG/DL (>40); LDL CHOLESTEROL 120 MG/DL (<100); NON-HDL-C 140 MG/DL; POTASSIUM SERUM 4.5 MEQ/L (3.5-5.1); SODIUM LEVEL 140 MEQ/L (136-145); TOTAL PROTEIN 7.6 GM/DL (6.4-8.2); TRIGLYCERIDES LEVEL 101 MG/DL (<150)
== END ==
LOC: M WUC 08:04
PROVIDERS: ATTEND Nurse Practitioner Family
DX: Z00.00 Encounter for general adult medical examination without abnormal findings (principal)

== ENCOUNTER → 2022-03-14 | Outpatient (REF) | payer OTHER ==
[2022-03-14 13:50] LABS: BASO % 0.7 % (0.0-1.0); EOS # 0.2 10^3/uL (0.0-0.5); HEMATOCRIT 37.9 % (36.0-47.0); HEMOGLOBIN 12.5 g/dl (12.0-15.5); LYMPH # 2.4 10^3/uL (1.5-5.0); LYMPH % 40.8 % (24.0-44.0); MEAN CORPUSCULAR HEMOGLOBIN 30.6 pg (27.0-33.0); MEAN CORPUSCULAR VOLUME 92.7 fl (80.0-96.0); MONO # 0.4 10^3/uL (0.0-0.8); MONO % 7.1 % (2.0-8.0); NEUTROPHILS # 2.9 10^3/uL (1.5-8.5); NEUTROPHILS % 48.2 % (36.0-66.0); PLATELET COUNT, AUTOMATED 210 10^3/uL (150-450); RED BLOOD COUNT 4.09 10^6/uL (4.00-5.40)
[2022-03-14 14:23] LABS: ERYTHROCYTE SEDIMENTATION RATE 13 mm/hr (0-20)
[2022-03-14 14:31] LABS: C REACTIVE PROTEIN QUANTITATIV 0.4 MG/DL (<1.0); FERRITIN 16.8 NG/ML (7.3-270.7); FREE T4 0.99 NG/DL (0.89-1.76); PERCENT SATURATION 19.3 % (13.2-45.0); THYROID STIMULATING HORMONE 1.433 uIU/ML (0.55-4.78); TOTAL 25(OH) VITAMIN D 46.8 NG/ML (20.0-100.0)
[2022-03-16 15:12] LABS: ANTINUCLEAR ANTIBODIES DIRECT Negative (Negative)
== END ==
LOC: M WUC 09:17
PROVIDERS: ATTEND Nurse Practitioner Family
DX: M79.10 Myalgia, unspecified site (principal); R42 Dizziness and giddiness

== ENCOUNTER → 2022-06-14 | Outpatient (CLI) | payer OTHER | LOC: M WHC 08:41 | PROVIDERS: ATTEND Family Medicine | DX: Z12.31 Encounter for screening mammogram for malignant neoplasm of breast (principal); Z80.42 Family history of malignant neoplasm of prostate; Z80.3 Family history of malignant neoplasm of breast ==

== ENCOUNTER → 2022-09-07 | Outpatient (CLI) | payer OTHER | LOC: M RAD 07:37 | PROVIDERS: ATTEND Nurse Practitioner Family | DX: M54.2 Cervicalgia (principal) ==

== ENCOUNTER 2022-11-22 10:17 | Day surgery (SDC) | payer OTHER ==
[~2022-11-22] VITALS: Ht 162.6 cm; Wt 58.1 kg
[~2022-11-22 10:17] MED LIST changes: +NS 1,000 ML IV ONE
[2022-11-22] MEDS ORDERED: propofoL 200 MG/20 ML VIAL As Ordered ONE ×2 (11:19→11:56)
[2022-11-22] MEDS ORDERED: LIDOCAINE 2% MDV 20ML VIAL As Ordered ONE ×2 (11:19→11:32)
[2022-11-22 11:51] VITALS: TEMP 98.6
[2022-11-22 12:06] VITALS: BP 101/67; O2SAT 100
== END 2022-11-22 12:33 | disposition home or self-care (01) ==
LOC: M OPP 10:17
PROVIDERS: ATTEND Surgery
DX: Z12.11 Encounter for screening for malignant neoplasm of colon (principal); Q43.8 Other specified congenital malformations of intestine; Z87.891 Personal history of nicotine dependence; Z79.1 Long term (current) use of non-steroidal anti-inflammatories (NSAID)

== ENCOUNTER → 2023-05-01 | Outpatient (REF) | payer OTHER ==
[~2023-05-01] MED LIST changes: -NS 1,000 ML IV ONE
[2023-05-01 10:19] LABS: ALBUMIN 4.2 G/DL (3.2-5.2); ALKALINE PHOSPHATASE 52 U/L (46-116); ALT/SGPT 23 U/L (7.0-40); AST/SGOT 17 U/L (<34); BILIRUBIN,TOTAL 0.5 MG/DL (0.3-1.2); BLOOD UREA NITROGEN 16 MG/DL (9-23); CALCIUM LEVEL 9.6 MG/DL (8.5-10.1); CARBON DIOXIDE LEVEL 31 MMOL/L (20-31); CHLORIDE LEVEL 108 MMOL/L (98-107); CHOLESTEROL LEVEL 260 MG/DL (<200); CHOLESTEROL RISK RATIO 2.98 (<5); CREATININE FOR GFR 0.91 MG/DL (0.55-1.30); GLOMERULAR FILTRATION RATE > 60.0 (>58); GLUCOSE, FASTING 91 MG/DL (60-100); HDL CHOLESTEROL 87.1 MG/DL (>40); LDL CHOLESTEROL 157.5 MG/DL (<100); NON-HDL-C 172.9 MG/DL; SODIUM LEVEL 143 MMOL/L (136-145); TOTAL PROTEIN 6.9 G/DL (5.7-8.2); TRIGLYCERIDES LEVEL 77 MG/DL (<150)
== END ==
LOC: M LABWUC 09:32
PROVIDERS: ATTEND Nurse Practitioner Family
DX: Z00.00 Encounter for general adult medical examination without abnormal findings (principal); E78.2 Mixed hyperlipidemia

== ENCOUNTER → 2023-06-19 | Outpatient (CLI) | payer OTHER | LOC: M WHC 16:00 | PROVIDERS: ATTEND Nurse Practitioner Family | DX: Z12.31 Encounter for screening mammogram for malignant neoplasm of breast (principal); R92.333 Mammographic heterogeneous density, bilateral breasts; R92.8 Other abnormal and inconclusive findings on diagnostic imaging of breast ==

== ENCOUNTER → 2023-10-22 | Outpatient (CLI) | payer OTHER | LOC: M WUC 12:11 | PROVIDERS: ATTEND Registered Nurse | DX: M79.672 Pain in left foot (principal); M77.52 Other enthesopathy of left foot and ankle ==

== ENCOUNTER → 2024-03-27 | Outpatient (CLI) | payer OTHER ==
[2024-03-27 12:30] LABS: BASO % 0.6 % (0.0-1.0); EOS # 0.2 10^3/uL (0.0-0.5); EOS % 4.1 % (0.0-3.0); HEMATOCRIT 38.6 % (36.0-47.0); HEMOGLOBIN 12.8 g/dl (12.0-15.5); LYMPH # 1.5 10^3/uL (1.5-5.0); LYMPH % 30.4 % (24.0-44.0); MEAN CORPUSCULAR HEMOGLOBIN 30.6 pg (27.0-33.0); MEAN CORPUSCULAR HGB CONC 33.2 g/dl (32.0-36.5); MEAN CORPUSCULAR VOLUME 92.3 fl (80.0-96.0); MONO # 0.5 10^3/uL (0.0-0.8); MONO % 10.7 % (2.0-8.0); NEUTROPHILS # 2.7 10^3/uL (1.5-8.5); PLATELET COUNT, AUTOMATED 195 10^3/uL (150-450); RED BLOOD COUNT 4.18 10^6/uL (4.00-5.40); WHITE BLOOD COUNT 5.1 10^3/uL (4.0-10.0)
[2024-03-27 12:36] LABS: ALBUMIN 3.9 G/DL (3.2-5.2); ALKALINE PHOSPHATASE 55 U/L (35-104); ALT/SGPT 19 U/L (7.0-40); AST/SGOT 15 U/L (<34); BILIRUBIN,TOTAL 0.5 MG/DL (0.3-1.2); BLOOD UREA NITROGEN 17 MG/DL (9-23); CALCIUM LEVEL 10.1 MG/DL (8.5-10.1); CARBON DIOXIDE LEVEL 30 MMOL/L (20-31); CHLORIDE LEVEL 104 MMOL/L (98-107); CHOLESTEROL LEVEL 261 MG/DL (<200); CREATININE FOR GFR 0.93 MG/DL (0.55-1.30); GLOMERULAR FILTRATION RATE > 60.0 (>51); GLUCOSE, FASTING 93 MG/DL (60-100); HDL CHOLESTEROL 66.9 MG/DL (>40); LDL CHOLESTEROL 170.5 MG/DL (<100); NON-HDL-C 194.1 MG/DL; POTASSIUM SERUM 4.2 MMOL/L (3.5-5.1); SODIUM LEVEL 139 MMOL/L (136-145); TOTAL PROTEIN 7.3 G/DL (5.7-8.2); TRIGLYCERIDES LEVEL 118 MG/DL (<150)
[2024-03-27 12:40] LABS: TOTAL 25(OH) VITAMIN D 36.3 NG/ML (20.0-100.0)
== END ==
LOC: M WUC 08:16
PROVIDERS: ATTEND Nurse Practitioner Family
DX: Z00.00 Encounter for general adult medical examination without abnormal findings (principal)